=== PATIENT | male | born 2005 | race Two or more races ===

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

== ENCOUNTER 2024-04-13 23:44 | Emergency (ER) | payer MEDICAID ==
[~2024-04-13] VITALS: Ht 182.9 cm; Wt 77.4 kg
[2024-04-13 23:59] VITALS: BP 138/86; PULSE 81; RESP 16; TEMP 98.9; O2SAT 98
[2024-04-14] MEDS ORDERED: IBUP-1456 PO (02:18)
== END 2024-04-14 02:31 | disposition home or self-care (01) ==
LOC: ER 23:44
DX: S62.336A Displaced fracture of neck of fifth metacarpal bone, right hand, initial encounter for closed fracture (principal); W22.01XA Walked into wall, initial encounter; Y93.01 Activity, walking, marching and hiking; Y92.89 Other specified places as the place of occurrence of the external cause; Y99.8 Other external cause status
CPT/HCPCS: 29125; 73130

== ENCOUNTER 2024-11-11 20:23 | Emergency (ER) | payer MEDICAID ==
[~2024-11-11] VITALS: Ht 182.9 cm; Wt 81.8 kg
[~2024-11-11 20:23] MED LIST: IBUP-1456 PO
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
[2024-11-11] MEDS ORDERED: metroNIDAZOLE 500MG/100ML 100 ML IV ONE (23:15)
[2024-11-12] MEDS: cefTRIAXone 1GM/50ML D5W 50 ML IV ONE (00:03)
[2024-11-12] MEDS: MORPHINE SULFATE INJ 2 MG/ml SYRG IM ONE (00:32)
[2024-11-12 00:43] VITALS: BP 126/54; PULSE 98; RESP 18; TEMP 99; O2SAT 98
== END 2024-11-12 01:15 | disposition short-term general hospital (02) ==
LOC: ER 20:23
DX: S61.252A Open bite of right middle finger without damage to nail, initial encounter (principal); L08.9 Local infection of the skin and subcutaneous tissue, unspecified; Z79.899 Other long term (current) drug therapy; W50.3XXA Accidental bite by another person, initial encounter; Y93.89 Activity, other specified; Y92.89 Other specified places as the place of occurrence of the external cause; Y99.8 Other external cause status
CPT/HCPCS: 73130; 96372; 99285; J0696; J2270